=== PATIENT | female | born 1975 | race Two or more races ===

== ENCOUNTER 2016-12-25 11:25 | Emergency (ER) | payer OTHER ==
[2016-12-25] MEDS ORDERED: HYDROCODONE/ACETAMINOPHEN 5/325MG TABLET ONE (12:49)
== END 2016-12-25 12:56 | disposition home or self-care (01) ==
LOC: ED 11:25
DX: M43.6 Torticollis (principal)
CPT/HCPCS: 99283 ×2; A9270